=== PATIENT | male | born 1940 | race Caucasian/White ===

== ENCOUNTER → 2018-09-15 | Outpatient (CLI) | payer MEDICARE, OTHER | LOC: M.MRI 16:47 | DX: M75.122 Complete rotator cuff tear or rupture of left shoulder, not specified as traumatic (principal); S46.912A Strain of unspecified muscle, fascia and tendon at shoulder and upper arm level, left arm, initial encounter; S43.402A Unspecified sprain of left shoulder joint, initial encounter; M19.012 Primary osteoarthritis, left shoulder; M25.412 Effusion, left shoulder; M62.522 Muscle wasting and atrophy, not elsewhere classified, left upper arm; X58.XXXA Exposure to other specified factors, initial encounter; Y93.89 Activity, other specified; Y92.9 Unspecified place or not applicable; Y99.8 Other external cause status ==